=== PATIENT | female | born 1995 | race Caucasian/White ===

== ENCOUNTER 2021-05-22 03:47 | Observation (INO) ==
[2021-05-22] MEDS ORDERED: 0.9 % Sodium Chloride 1,000 ML IVC ONE (03:50)
[2021-05-22] MEDS ORDERED: *HR* LORazepam 2 MG/ML VIAL ONE (04:40)
[2021-05-22 04:41] LABS: Basophils % 0.2 %; Eosinophils # 0.1 K/mcL (0.0-0.6); Eosinophils % 0.9 %; Hematocrit 39.5 % (35.3-44.9); Hemoglobin 13.3 g/dL (11.5-15.4); Immature Granulocytes % 0.3 % (0-4); Lymphocytes # 2.9 K/mcL (0.6-4.6); Lymphocytes % 28.2 %; Mean Corpuscular HGB Conc 33.7 g/dL (31.6-35.5); Mean Corpuscular Hemoglobin 30.9 pg (28.0-33.3); Mean Corpuscular Volume 91.9 fL (83.0-100.0); Mean Platelet Volume 9.9 fL (9.4-12.4); Monocytes # 0.7 K/mcL (0.0-1.3); Monocytes % 6.6 %; Neutrophils # 6.5 K/mcL (1.6-8.9); Platelet Count 248 K/mcL (140-400); Red Cell Distribution Width 11.7 % (11.5-14.5); Segmented Neutrophils % 63.8 %; White Blood Count 10.2 K/mcL (4.3-11.1)
[2021-05-22] MEDS ORDERED: *HR* LORazepam 2 MG/ML VIAL IVP ONE (04:42)
[2021-05-22 04:46] LABS: Bilirubin,Urine Negative (Negative); Blood,Urine Large (Negative); Clarity,Urine Turbid (Clear); Color,Urine Yellow (Yellow); Glucose,Urine (UA) Normal (Normal); Ketones,Urine Trace mg/dL (Negative); Leukocyte Esterase,Urine Large (Negative); Mucus,Urine Few per lpf (None-Few); Nitrite,Urine Negative (Negative); PH,Urine 5.5 pH Units (5.0-8.0); Protein,Urine 50 mg/dL (Neg-Trace); RBC,Urine TNTC per hpf (0-3); Specific Gravity,Urine 1.021 (1.010-1.025); Squamous Epithelial Cell,Urine Moderate per hpf (None-Few); Urobilinogen,Urine Normal (Normal); WBC,Urine TNTC per hpf (0-3)
[2021-05-22 05:09] LABS: Acetaminophen < 10 mcg/mL (10-20); Alanine Aminotransferase 31 Units/L (7-52); Albumin 4.6 g/dL (3.5-5.7); Albumin/Globulin Ratio 1.5 (1.1-2.2); Alkaline Phosphatase 63 Units/L (34-104); Aspartate Amino Transferase 33 Units/L (13-39); BUN/Creatinine Ratio 14 (6-26); Bilirubin,Direct 0.2 mg/dL (0.0-0.2); Bilirubin,Indirect 0.7 mg/dL (0.0-1.0); Bilirubin,Total 0.9 mg/dL (0.3-1.0); Blood Urea Nitrogen 14 mg/dL (6-20); Calcium 9.7 mg/dL (8.6-10.3); Carbon Dioxide 19 mEq/L (23-29); Chloride 100 mEq/L (98-107); Ethanol < 10 mg/dL (Less than 10); Glucose 110 mg/dL (70-105); Osmolality,Calculated 289 (280-300); Potassium 3.5 mEq/L (3.5-5.1); Salicylate < 2.5 mg/dL (15.0-30.0); Sodium 139 mEq/L (136-145); Total Protein 7.6 g/dL (6.4-8.9); eGFR For African Americans > 60 (> 60); eGFR For Non-African Americans > 60 (> 60)
[2021-05-22 05:17] LABS: Amphetamine Screen,Urine Positive ng/mL (Cutoff=1000); Barbiturate Screen,Urine Negative ng/mL (Cutoff=200); Benzodiazepines Screen,Urine Negative ng/mL (Cutoff=200); Cannabinoid Screen,Urine Negative ng/mL (Cutoff = 50); Cocaine Screen,Urine Negative ng/mL (Cutoff= 300); Opiate Screen,Urine Negative ng/mL (Cutoff=300); Phencyclidine Screen,Urine Negative ng/mL (Cutoff=25)
[2021-05-22] MEDS ORDERED: Naloxone 0.4 MG/ML INJ IVP PRN (06:02)
[2021-05-22] MEDS ORDERED: Melatonin 3 MG TABLET PO PRN (06:02)
[2021-05-22] MEDS ORDERED: *HR* LORazepam 1 MG TABLET PO PRN (06:11)
[2021-05-22] MEDS ORDERED: *HR* LORazepam 2 MG/ML VIAL IVP PRN ×2 (06:12→10:20)
[2021-05-22 07:34] LABS: Magnesium 2.3 mg/dL (1.6-2.6)
[2021-05-22] MEDS: cefTRIAXone 1,000 MG in Water for inj. (sterile) 10 ML IVP SCH (08:33)
[2021-05-22] MEDS ORDERED: OLANZapine 5 MG TAB.RAPDIS PO PRN (10:58)
[2021-05-22] MEDS ORDERED: OLANZapine 10 MG VIAL IM PRN (10:59)
[2021-05-23 06:40] LABS: Hematocrit 39.9 % (35.3-44.9); Hemoglobin 13.2 g/dL (11.5-15.4); Mean Corpuscular HGB Conc 33.1 g/dL (31.6-35.5); Mean Corpuscular Hemoglobin 30.7 pg (28.0-33.3); Mean Corpuscular Volume 92.8 fL (83.0-100.0); Mean Platelet Volume 9.6 fL (9.4-12.4); Platelet Count 201 K/mcL (140-400); Red Cell Distribution Width 11.6 % (11.5-14.5); White Blood Count 5.6 K/mcL (4.3-11.1)
[2021-05-23 07:01] LABS: BUN/Creatinine Ratio 25 (6-26); Blood Urea Nitrogen 19 mg/dL (6-20); Calcium 9.2 mg/dL (8.6-10.3); Carbon Dioxide 18 mEq/L (23-29); Chloride 105 mEq/L (98-107); Glucose 59 mg/dL (70-105); Osmolality,Calculated 284 (280-300); Potassium 3.8 mEq/L (3.5-5.1); Sodium 137 mEq/L (136-145); eGFR For African Americans > 60 (> 60); eGFR For Non-African Americans > 60 (> 60)
[2021-05-23 07:05] VITALS: BP 109/67; PULSE 73; TEMP 98.1; O2SAT 96
[2021-05-23] MEDS: cefTRIAXone 1,000 MG in Water for inj. (sterile) 10 ML IVP SCH (07:52)
== END 2021-05-23 12:48 | disposition home or self-care (01) ==
LOC: 3BNU 03:47 → EMEROOARM 03:47 → SUATTDRO 06:14 → 3BNU 06:41
PROVIDERS: ADMIT Internal Medicine; ATTEND Family Medicine